=== PATIENT | female | born 1950 | race Caucasian/White ===

== ENCOUNTER → 2019-04-27 | Outpatient (CLI) | payer OTHER ==
[2019-04-27 16:15] LABS: BASOPHILS % (AUTO) 1 % (0-10); EOSINOPHILS % (AUTO) 1 % (0-10); HEMATOCRIT 38 % (35-52); HEMOGLOBIN 12.3 G/DL (11.5-16.0); LYMPHOCYTES # (AUTO) 1.5 X 10^3 (1.0-4.0); LYMPHOCYTES % (AUTO) 26 % (12-44); MEAN CORPUSCULAR HEMOGLOBIN 31 PG (25-34); MEAN CORPUSCULAR HGB CONC 32 G/DL (32-36); MEAN CORPUSCULAR VOLUME 96 FL (80-99); MEAN PLATELET VOLUME 9.6 FL (7.4-10.4); MONOCYTES # (AUTO) 0.4 X 10^3 (0.0-1.0); MONOCYTES % (AUTO) 8 % (0-12); NEUTROPHILS # (AUTO) 3.7 X 10^3 (1.8-7.8); NEUTROPHILS % (AUTO) 64 % (42-75); PLATELET COUNT 446 10^3/uL (130-400); RED CELL DISTRIBUTION WIDTH 13.3 % (10.0-14.5); WHITE BLOOD COUNT 5.8 10^3/uL (4.3-11.0)
[2019-04-27 16:16] LABS: BASOPHILS # (AUTO) 0.1 10^3/uL (0.0-0.1)
[2019-04-27 16:55] LABS: ALKALINE PHOSPHATASE 139 U/L (40-136); BILIRUBIN,TOTAL 0.2 MG/DL (0.1-1.0); BUN/CREATININE RATIO 11; CALCIUM 9.4 MG/DL (8.5-10.1); CARBON DIOXIDE 25 MMOL/L (21-32); CHLORIDE 99 MMOL/L (98-107); GFR ESTIMATED > 60; GLUCOSE 79 MG/DL (70-105); POTASSIUM 3.9 MMOL/L (3.6-5.0); SODIUM 139 MMOL/L (135-145)
[2019-04-27 16:56] LABS: ALANINE AMINOTRANSFERASE 74 U/L (0-55); ALBUMIN 3.9 GM/DL (3.2-4.5); TOTAL PROTEIN 7.1 GM/DL (6.4-8.2)
[2019-04-27 19:03] LABS: ERYTHROCYTE SEDIMENTATION RATE 75 MM/HR (0-30)
== END ==
LOC: LAB FS 15:24
DX: G96.19 Other disorders of meninges, not elsewhere classified (principal); G06.2 Extradural and subdural abscess, unspecified; M79.9 Soft tissue disorder, unspecified
CPT/HCPCS: 36415; 80053; 85025; 85652; 86141

== ENCOUNTER → 2019-05-04 | Outpatient (CLI) | payer OTHER ==
[2019-05-04 15:51] LABS: HEMATOCRIT 39 % (35-52); HEMOGLOBIN 12.2 G/DL (11.5-16.0); LYMPHOCYTES % (AUTO) 33 % (12-44); MEAN CORPUSCULAR HEMOGLOBIN 31 PG (25-34); MEAN CORPUSCULAR HGB CONC 32 G/DL (32-36); MEAN CORPUSCULAR VOLUME 96 FL (80-99); MEAN PLATELET VOLUME 10.2 FL (7.4-10.4); MONOCYTES % (AUTO) 9 % (0-12); NEUTROPHILS % (AUTO) 54 % (42-75); PLATELET COUNT 276 10^3/uL (130-400); RED CELL DISTRIBUTION WIDTH 13.1 % (10.0-14.5); WHITE BLOOD COUNT 5.2 10^3/uL (4.3-11.0)
[2019-05-04 15:52] LABS: BASOPHILS # (AUTO) 0.1 10^3/uL (0.0-0.1); BASOPHILS % (AUTO) 1 % (0-10); EOSINOPHILS # (AUTO) 0.1 10^3/uL (0.0-0.3); EOSINOPHILS % (AUTO) 3 % (0-10); LYMPHOCYTES # (AUTO) 1.7 X 10^3 (1.0-4.0); MONOCYTES # (AUTO) 0.5 X 10^3 (0.0-1.0); NEUTROPHILS # (AUTO) 2.8 X 10^3 (1.8-7.8)
[2019-05-04 16:37] LABS: ALANINE AMINOTRANSFERASE 29 U/L (0-55); ALBUMIN 3.6 GM/DL (3.2-4.5); ALKALINE PHOSPHATASE 121 U/L (40-136); BILIRUBIN,TOTAL 0.2 MG/DL (0.1-1.0); BUN/CREATININE RATIO 15; CALCIUM 9.3 MG/DL (8.5-10.1); CARBON DIOXIDE 27 MMOL/L (21-32); CHLORIDE 102 MMOL/L (98-107); CREATININE SERUM 0.71 MG/DL (0.60-1.30); GFR ESTIMATED > 60; GLUCOSE 93 MG/DL (70-105); POTASSIUM 4.2 MMOL/L (3.6-5.0); SODIUM 140 MMOL/L (135-145); TOTAL PROTEIN 6.8 GM/DL (6.4-8.2)
[2019-05-04 18:16] LABS: ERYTHROCYTE SEDIMENTATION RATE 30 MM/HR (0-30)
== END ==
LOC: LAB FS 15:26
PROVIDERS: ATTEND Internal Medicine Infectious Disease
DX: T81.49XA Infection following a procedure, other surgical site, initial encounter (principal); B95.1 Streptococcus, group B, as the cause of diseases classified elsewhere; M47.816 Spondylosis without myelopathy or radiculopathy, lumbar region; Z79.2 Long term (current) use of antibiotics
CPT/HCPCS: 36415; 80053; 85025; 85652; 86141

== ENCOUNTER → 2019-05-11 | Outpatient (CLI) | payer OTHER ==
[2019-05-11 15:29] LABS: HEMATOCRIT 40 % (35-52); HEMOGLOBIN 12.6 G/DL (11.5-16.0); MEAN CORPUSCULAR HEMOGLOBIN 30 PG (25-34); MEAN CORPUSCULAR HGB CONC 32 G/DL (32-36); MEAN CORPUSCULAR VOLUME 96 FL (80-99); RED CELL DISTRIBUTION WIDTH 13.2 % (10.0-14.5); WHITE BLOOD COUNT 5.4 10^3/uL (4.3-11.0)
[2019-05-11 15:30] LABS: BASOPHILS # (AUTO) 0.1 10^3/uL (0.0-0.1); BASOPHILS % (AUTO) 1 % (0-10); EOSINOPHILS # (AUTO) 0.1 10^3/uL (0.0-0.3); EOSINOPHILS % (AUTO) 2 % (0-10); LYMPHOCYTES # (AUTO) 1.9 X 10^3 (1.0-4.0); LYMPHOCYTES % (AUTO) 36 % (12-44); MEAN PLATELET VOLUME 10.6 FL (7.4-10.4); MONOCYTES # (AUTO) 0.5 X 10^3 (0.0-1.0); MONOCYTES % (AUTO) 9 % (0-12); NEUTROPHILS # (AUTO) 2.8 X 10^3 (1.8-7.8); NEUTROPHILS % (AUTO) 52 % (42-75); PLATELET COUNT 260 10^3/uL (130-400)
[2019-05-11 16:05] LABS: ALANINE AMINOTRANSFERASE 21 U/L (0-55); ALBUMIN 3.9 GM/DL (3.2-4.5); ALKALINE PHOSPHATASE 116 U/L (40-136); BILIRUBIN,TOTAL 0.2 MG/DL (0.1-1.0); BUN/CREATININE RATIO 11; CALCIUM 9.5 MG/DL (8.5-10.1); CARBON DIOXIDE 26 MMOL/L (21-32); CHLORIDE 105 MMOL/L (98-107); GFR ESTIMATED > 60; GLUCOSE 107 MG/DL (70-105); POTASSIUM 3.9 MMOL/L (3.6-5.0); SODIUM 144 MMOL/L (135-145); TOTAL PROTEIN 7.3 GM/DL (6.4-8.2)
[2019-05-11 16:47] LABS: ERYTHROCYTE SEDIMENTATION RATE 32 MM/HR (0-30)
== END ==
LOC: LAB FS 15:10
PROVIDERS: ATTEND Internal Medicine Infectious Disease
DX: M47.816 Spondylosis without myelopathy or radiculopathy, lumbar region (principal); B95.1 Streptococcus, group B, as the cause of diseases classified elsewhere; T81.49XA Infection following a procedure, other surgical site, initial encounter; Z79.2 Long term (current) use of antibiotics
CPT/HCPCS: 36415; 80053; 85025; 85652; 86141

== ENCOUNTER → 2019-06-01 | Outpatient (CLI) | payer OTHER ==
[2019-06-01 16:27] LABS: BASOPHILS % (AUTO) 1 % (0-10); EOSINOPHILS % (AUTO) 1 % (0-10); HEMATOCRIT 43 % (35-52); HEMOGLOBIN 13.8 G/DL (11.5-16.0); LYMPHOCYTES # (AUTO) 1.3 X 10^3 (1.0-4.0); LYMPHOCYTES % (AUTO) 22 % (12-44); MEAN CORPUSCULAR HEMOGLOBIN 30 PG (25-34); MEAN CORPUSCULAR HGB CONC 32 G/DL (32-36); MEAN CORPUSCULAR VOLUME 95 FL (80-99); MEAN PLATELET VOLUME 11.4 FL (7.4-10.4); MONOCYTES % (AUTO) 8 % (0-12); NEUTROPHILS # (AUTO) 4.1 X 10^3 (1.8-7.8); NEUTROPHILS % (AUTO) 68 % (42-75); PLATELET COUNT 206 10^3/uL (130-400); RED CELL DISTRIBUTION WIDTH 13.1 % (10.0-14.5); WHITE BLOOD COUNT 6.1 10^3/uL (4.3-11.0)
[2019-06-01 16:28] LABS: EOSINOPHILS # (AUTO) 0.1 10^3/uL (0.0-0.3); MONOCYTES # (AUTO) 0.5 X 10^3 (0.0-1.0)
[2019-06-01 17:22] LABS: BUN/CREATININE RATIO 17; CARBON DIOXIDE 25 MMOL/L (21-32); CHLORIDE 105 MMOL/L (98-107); CREATININE SERUM 0.65 MG/DL (0.60-1.30); GFR ESTIMATED > 60; POTASSIUM 3.9 MMOL/L (3.6-5.0); SODIUM 143 MMOL/L (135-145)
[2019-06-01 17:23] LABS: ALANINE AMINOTRANSFERASE 36 U/L (0-55); ALBUMIN 4.3 GM/DL (3.2-4.5); ALKALINE PHOSPHATASE 102 U/L (40-136); BILIRUBIN,TOTAL 0.2 MG/DL (0.1-1.0); CALCIUM 9.7 MG/DL (8.5-10.1); GLUCOSE 90 MG/DL (70-105); TOTAL PROTEIN 7.1 GM/DL (6.4-8.2)
[2019-06-01 17:25] LABS: ERYTHROCYTE SEDIMENTATION RATE 6 MM/HR (0-30)
== END ==
LOC: LAB FS 16:08
PROVIDERS: ATTEND Internal Medicine Infectious Disease
DX: T81.49XA Infection following a procedure, other surgical site, initial encounter (principal); B95.1 Streptococcus, group B, as the cause of diseases classified elsewhere; Z79.2 Long term (current) use of antibiotics
CPT/HCPCS: 36415; 80053; 85025; 85652; 86141

== ENCOUNTER → 2019-06-08 | Outpatient (CLI) | payer OTHER ==
[2019-06-08 18:19] LABS: ALANINE AMINOTRANSFERASE 21 U/L (0-55); ALKALINE PHOSPHATASE 105 U/L (40-136); BILIRUBIN,TOTAL 0.2 MG/DL (0.1-1.0); BUN/CREATININE RATIO 13; CALCIUM 9.1 MG/DL (8.5-10.1); CARBON DIOXIDE 24 MMOL/L (21-32); CHLORIDE 107 MMOL/L (98-107); CREATININE SERUM 0.62 MG/DL (0.60-1.30); GFR ESTIMATED > 60; GLUCOSE 78 MG/DL (70-105); POTASSIUM 3.9 MMOL/L (3.6-5.0); SODIUM 143 MMOL/L (135-145)
[2019-06-08 18:20] LABS: ALBUMIN 4.2 GM/DL (3.2-4.5)
[2019-06-08 19:46] LABS: HEMATOCRIT 42 % (35-52); HEMOGLOBIN 13.5 G/DL (11.5-16.0); MEAN CORPUSCULAR HEMOGLOBIN 30 PG (25-34); MEAN CORPUSCULAR VOLUME 94 FL (80-99); WHITE BLOOD COUNT 6.2 10^3/uL (4.3-11.0)
[2019-06-08 19:47] LABS: BASOPHILS # (AUTO) 0.1 10^3/uL (0.0-0.1); BASOPHILS % (AUTO) 1 % (0-10); EOSINOPHILS # (AUTO) 0.1 10^3/uL (0.0-0.3); EOSINOPHILS % (AUTO) 2 % (0-10); LYMPHOCYTES # (AUTO) 1.4 X 10^3 (1.0-4.0); LYMPHOCYTES % (AUTO) 23 % (12-44); MEAN CORPUSCULAR HGB CONC 32 G/DL (32-36); MEAN PLATELET VOLUME 11.4 FL (7.4-10.4); MONOCYTES # (AUTO) 0.5 X 10^3 (0.0-1.0); MONOCYTES % (AUTO) 7 % (0-12); NEUTROPHILS # (AUTO) 4.1 X 10^3 (1.8-7.8); NEUTROPHILS % (AUTO) 67 % (42-75); PLATELET COUNT 224 10^3/uL (130-400); RED CELL DISTRIBUTION WIDTH 12.9 % (10.0-14.5)
[2019-06-08 19:48] LABS: ERYTHROCYTE SEDIMENTATION RATE 4 MM/HR (0-30)
== END ==
LOC: LAB FS 16:40
PROVIDERS: ATTEND Internal Medicine Infectious Disease
DX: T81.49XA Infection following a procedure, other surgical site, initial encounter (principal); Z79.2 Long term (current) use of antibiotics
CPT/HCPCS: 36415; 80053; 85025; 85652; 86141

== ENCOUNTER 2019-08-05 07:39 | Emergency (ER) | payer MEDICARE, OTHER ==
[~2019-08-05] VITALS: Ht 157.9 cm; Wt 68.1 kg
--- NOTE | 2019-08-05 07:39 | NUR ---
Arrival to ED via [facility], see nursing triage.
[2019-08-05] MEDS ORDERED: HYDROmorphone 2 MG/ML VIAL (DILAUDID) ONE (07:53)
[2019-08-05] MEDS ORDERED: NS IV 1000 ML 1,000 ML IV SCH (08:00)
[2019-08-05] MEDS ORDERED: ONDANSETRON 4 MG/2 ML (SDV) Z0FRAN IVP ONE ×2 (08:00→09:30)
[2019-08-05] MEDS ORDERED: HYDROmorphone 2 MG/ML VIAL (DILAUDID) IVP ONE (08:00)
--- NOTE | 2019-08-05 08:03 | NUR ---
Pain medication given for c/o severe pain.
--- NOTE | 2019-08-05 08:08 | ED General ---
General Chief Complaint: Abdominal/GI Problems Stated Complaint: NEAR SYNCOPE; ABD PAIN Nursing Triage Note: Pt presents via EMS from pt's employment with severe abd pain and near syncope event. Pt had gallbladder removal at [facility] on Saturday. Pt reports has had BM since surgery and is using Hydrocodone for pain. Last pain pill 0500 and EMS gave Fentanyl 25 mcg IV. Nursing Sepsis Screen: No Definite Risk History of Present Illness Date Seen by Provider: August 05, 2019 Time Seen by Provider: 08:04 Initial Comments Patient presenting to emergency department via EMS for evaluation of sudden onset abdominal pain earlier this morning. She says it is epigastric and radiates into her lower abdomen but not towards her back or chest. She says she has no nausea vomiting diaphoresis shortness of breath diarrhea constipation dysuria hematuria. She had a [facility]olecystectomy last Saturday [facility] She says it was uncomplicated and she has had no issues since surgery until now. She says she has been having normal bowel movements and passing gas. She received 25 g of fentanyl and says she is still in severe pain. She appears uncomfortable but nontoxic. Allergies and Home Medications Allergies Coded Allergies: Sulfa (Sulfonamide Antibiotics) (Unverified Adverse Reaction, Unknown, 08/05/19) Patient Home Medication List Home Medication List Reviewed: Yes Review of Systems Review of Systems Constitutional: no symptoms reported EENTM: no symptoms reported Respiratory: no symptoms reported Cardiovascular: no symptoms reported Gastrointestinal: abdominal pain Genitourinary: no symptoms reported Musculoskeletal: no symptoms reported Skin: no symptoms reported All Other Systems Reviewed Negative Unless Noted: Yes Past Rcffnuw-[id number]-[id number] Hx Patient Social History Recent Foreign Travel: No Contact w/Someone Who Travel: No Recent Infectious Disease Expo: No Past Medical History [facility] [facility] [employer] History: Hysterectomy Physical Exam Vital Signs Vital Signs - First Documented 08/05/19 07:39 Temp 35.6 Pulse 65 Resp 20 B/P (MAP) 122/67 (85) O2 Delivery Room Air Capillary Refill : Less Than 3 Seconds Height, Weight, BMI Height: '" Weight: lbs. oz. kg; 27.00 BMI Method: General Appearance: WD/WN, Mild Distress HEENT: PERRL/EOMI Neck: Supple Respiratory: No Respiratory Distress Cardiovascular: Regular Rate, Rhythm Gastrointestinal: Soft; No Guarding, No Rebound; Tenderness (epigastrum) Back: Normal Inspection Neurologic/Psychiatric: Alert, Oriented x3 Skin: Warm/Dry Progress/Results/Core Measures Suspected Sepsis Recent Fever Within 48 Hours: No Infection Criteria Present: Suspected New Infection New/Unexplained Altered Menta: No Sepsis Screen: No Definite Risk SIRS Temperature: Pulse: 65 Respiratory Rate: 20 Laboratory Tests 08/05/19 07:45: White Blood Count 11.1H Blood Pressure 122 /67 Mean: 85 Laboratory Tests 08/05/19 07:45: Creatinine 0.77, INR Comment 0.9, Platelet Count 286, Total Bilirubin 0.3 Results/Orders Lab Results Laboratory Tests Test 08/05/19 07:45 08/05/19 08:43 Range/Units White Blood Count 11.1 H 4.3-11.0 10^3/uL Red Blood Count 4.64 4.35-5.85 10^6/uL Hemoglobin 13.9 11.5-16.0 G/DL Hematocrit 43 35-52 % Mean Corpuscular Volume 94 80-99 FL Mean Corpuscular Hemoglobin 30 25-34 PG Mean Corpuscular Hemoglobin Concent 32 32-36 G/DL Red Cell Distribution Width 13.3 10.0-14.5 % Platelet Count 286 130-400 10^3/uL Mean Platelet Volume 10.7 H 7.4-10.4 FL Neutrophils (%) (Auto) 50 42-75 % Lymphocytes (%) (Auto) 40 12-44 % Monocytes (%) (Auto) 8 0-12 % Eosinophils (%) (Auto) 1 0-10 % Basophils (%) (Auto) 1 0-10 % Neutrophils # (Auto) 5.5 1.8-7.8 X 10^3 Lymphocytes # (Auto) 4.4 H 1.0-4.0 X 10^3 Monocytes # (Auto) 0.9 0.0-1.0 X 10^3 Eosinophils # (Auto) 0.1 0.0-0.3 10^3/uL Basophils # (Auto) 0.1 0.0-0.1 10^3/uL Prothrombin Time 12.5 12.2-14.7 SEC INR Comment 0.9 0.8-1.4 Activated Partial Thromboplast Time 25 24-35 SEC Sodium Level 144 135-145 MMOL/L Potassium Level 3.6 3.6-5.0 MMOL/L Chloride Level 107 98-107 MMOL/L Carbon Dioxide Level 21 21-32 MMOL/L Anion Gap 16 H 5-14 MMOL/L Blood Urea Nitrogen 16 7-18 MG/DL Creatinine 0.77 0.60-1.30 MG/DL Estimat Glomerular Filtration Rate > 60 BUN/Creatinine Ratio 21 Glucose Level 159 H 70-105 MG/DL Calcium Level 9.2 8.5-10.1 MG/DL Corrected Calcium 9.2 8.5-10.1 MG/DL Total Bilirubin 0.3 0.1-1.0 MG/DL Aspartate Amino Transf (AST/SGOT) 25 5-34 U/L Alanine Aminotransferase (ALT/SGPT) 80 H 0-55 U/L Alkaline Phosphatase 118 40-136 U/L Troponin I < 0.30 <0.30 NG/ML Total Protein 6.6 6.4-8.2 GM/DL Albumin 4.0 3.2-4.5 GM/DL Lipase 18 8-78 U/L Urine Color YELLOW Urine Clarity CLEAR Urine pH 6.5 5-9 Urine Specific [place] 1.015 L 1.016-1.022 Urine Protein NEGATIVE NEGATIVE Urine Glucose (UA) NEGATIVE NEGATIVE Urine Ketones NEGATIVE NEGATIVE Urine Nitrite NEGATIVE NEGATIVE Urine Bilirubin NEGATIVE NEGATIVE Urine Urobilinogen 0.2 < = 1.0 MG/DL Urine Leukocyte Esterase 1+ H NEGATIVE Urine RBC (Auto) NEGATIVE NEGATIVE Urine RBC NONE /HPF Urine WBC 10-25 H /HPF Urine Squamous Epithelial Cells 0-2 /HPF Urine Crystals NONE /LPF Urine Bacteria TRACE /HPF Urine Casts PRESENT /LPF Urine Hyaline Casts 2-5 H /LPF Urine Mucus SMALL H /LPF Urine Culture Indicated YES My Orders Orders - LORENZA SCHMITT DO Cbc With Automated Diff (08/05/19 07:58) Comprehensive Metabolic Panel (08/05/19 07:58) Lipase (08/05/19 07:58) Troponin I Fs (08/05/19 07:58) Partial Thromboplastin Time (08/05/19 07:58) Protime With Inr (08/05/19 07:58) Ct Abdomen/Pelvis W (08/05/19 07:58) Ns Iv 1000 Ml (Sodium Chloride 0.9%) (08/05/19 08:00) Ondansetron Injection (Zofran Injectio (08/05/19 08:00) Hydromorphone Injection (Dilaudid Inject (08/05/19 08:00) Hydromorphone Injection (Dilaudid Inject (08/05/19 07:53) Iohexol Injection (Omnipaque 350 Mg/Ml 1 (08/05/19 08:15) Received Contrast (Hold Metformin- Contr (08/05/19 08:15) Sodium Chloride Flush (Catheter Flush Sy (08/05/19 08:15) Ns (Ivpb) (Sodium Chloride 0.9% Ivpb Bag (08/05/19 08:15) Pantoprazole Injection (Protonix Injecti (08/05/19 08:30) Ua Culture If Indicated (08/05/19 08:37) Urine Culture (08/05/19 08:43) Fentanyl Injection (Sublimaze Injection (08/05/19 09:30) Ondansetron Injection (Zofran Injectio (08/05/19 09:30) Antacid Suspension (Mylanta Suspension (08/05/19 09:30) Lidocaine 2% Viscous 15 Ml (Xylocaine Vi (08/05/19 09:30) Dicyclomine Injection (Bentyl Injection) (08/05/19 09:45) Ketorolac Injection (Toradol Injection) (08/05/19 09:45) Methylnaltrexone Injection (Relistor Inj (08/05/19 09:45) Morphine Injection (Morphine Injection (08/05/19 10:27) Haloperidol Injection (Haldol Injectio (08/05/19 10:45) Diphenhydramine Injection (Benadryl Inje (08/05/19 10:45) Medications Given in ED Current Medications Medications Dose Ordered Sig/Gail Route Start Time Stop Time Status Last Admin Dose Admin Al Hydrox/Mg Hydrox/Simethicone 30 ml ONCE ONCE PO 08/05/19 09:30 08/05/19 09:31 DC 08/05/19 09:45 30 ML Dicyclomine HCl 20 mg ONCE ONCE IM 08/05/19 09:45 08/05/19 09:46 DC 08/05/19 09:45 20 MG Fentanyl Citrate 50 mcg ONCE ONCE IVP 08/05/19 09:30 08/05/19 09:31 DC 08/05/19 09:38 50 MCG Hydromorphone HCl 1 mg ONCE ONCE IVP 08/05/19 08:00 08/05/19 08:01 DC 08/05/19 08:03 1 MG Iohexol 100 ml ONCE ONCE IV 08/05/19 08:15 08/05/19 08:16 DC 08/05/19 08:30 100 ML Ketorolac Tromethamine 15 mg ONCE ONCE IVP 08/05/19 09:45 08/05/19 09:46 DC 08/05/19 10:01 15 MG Lidocaine HCl 5 ml ONCE ONCE PO 08/05/19 09:30 08/05/19 09:31 DC 08/05/19 09:45 5 ML Methylnaltrexone [place] 12 mg ONCE ONCE SQ 08/05/19 09:45 08/05/19 09:46 DC 08/05/19 10:02 12 MG Ondansetron HCl 4 mg ONCE ONCE IVP 08/05/19 08:00 08/05/19 08:01 DC 08/05/19 08:06 4 MG Ondansetron HCl 4 mg ONCE ONCE IVP 08/05/19 09:30 08/05/19 09:31 DC 08/05/19 09:37 4 MG Pantoprazole 40 mg ONCE ONCE IV 08/05/19 08:30 08/05/19 08:31 DC 08/05/19 08:34 40 MG Sodium Chloride 10 ml NEEDED PRN IV 08/05/19 08:15 08/05/19 08:30 10 ML Sodium Chloride 100 ml ONCE ONCE IV 08/05/19 08:15 08/05/19 08:16 DC 08/05/19 08:30 80 ML Vital Signs/I&O 08/05/19 08/05/19 07:39 08:03 Temp 35.6 35.6 Pulse 65 Resp 20 B/P (MAP) 122/67 (85) O2 Delivery Room Air Capillary Refill : Less Than 3 Seconds Blood Pressure Mean: 85 Progress Note : Progress Note Patient with severe onset abdominal pain this morning in the setting of the surgery 5 days ago. I will check labs, imaging treat symptoms and reassess. Workup was unremarkable for acute process including no acute surgical pathology. I spoke to Dr. Bustos who is her surgeon from [facility] and he gave me several recommendations including Toradol and if I was able to send her home to wash her bowels out with magnesium citrate and prescribe her Tylenol and gabapentin for pain. He said if she needed to be admitted for pain control she does not need to be transferred to [facility] from his perspective. Patient received fentanyl from EMS and then I gave her Dilaudid which did not help her pain slightly gave her additional fentanyl and also give HER-2 doses of Zofran Protonix and a GI cocktail. She continue to arrive and pain and said she did not feel much better so I gave her morphine and Toradol Bentyl and relistor. She continued to writh in pain and said she was too uncomfortable to go home. I spoke to Dr. Mercado at [facility] and she requested patient to be transferred as she is fairly close to her postoperative surgery and patient would need a surgical consult and would be best for her to get her consult from her surgeon. I spoke to Dr. Rogers at [facility] and she agreed to accept patient for transfer. She asked me to give her something to calm her down so I gave her Haldol and Benadryl IV. Departure Impression Primary Impression: Intractable abdominal pain Additional Impressions: Nausea alone Leukocytosis (leucocytosis) Disposition: 02 XFER SHT-TRM HOSP Condition: Unchanged Transfer Transfer Reason: Patient preference Time Spoke to Accepting Phy: 10:20 Transfer Facility: [facility] Method of Transfer: EMS Departure-Patient Inst. Referrals: [facility] (PCP) Primary Care Physician TRUDI MAXWELL (Family) Primary Care Physician LORENZA SCHMITT DO August 05, 2019 08:08
--- OUTSIDE RECORDS SUMMARY | 2019-08-05 08:11 | XMS REPORT | Continuity of Care Document ---
Author Organization Unknown Address Unknown Phone Unavailable Allergies There is no data. Medications There is no data. 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, NOT ELSEWHE 05/03/2019 DIANA MARIEE MD Ot M79.9 SOFT TISSUE DISORDER, UNSPECIFIED 05/06/2019 DIANA MARIEE MD Ot 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, UNSPECI 05/06/2019 DIANA MARIEE MD Ot G96.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, 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 05/06/2019 DIANA MARIEE MD Ot M79.9 SOFT TISSUE DISORDER, UNSPECIFIED 05/06/2019 DIANA MARIEE MD Ot 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, UNSPECI 05/06/2019 DIANA MARIEE MD Ot G96.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, 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 05/06/2019 DIANA MARIEE MD Ot M79.9 SOFT TISSUE DISORDER, UNSPECIFIED 05/06/2019 DIANA MARIEE MD Ot 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, UNSPECI 05/06/2019 DIANA MARIEE MD Ot G96.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, NOT ELSEWHE 05/06/2019 DIANA MARIEE MD Ot M79.9 SOFT TISSUE DISORDER, UNSPECIFIED 05/13/2019 KODI GREENBERG, DIANA Resendez Ot B95.1 STREPTOCOCCUS, GROUP B, CAUSING DISEASES 05/13/2019 KODI GREENBERG, DIANA Resendez Ot M47.816 SPONDYLOSIS W/O MYELOPATHY OR RADICULOPA 05/13/2019 KODI GREENBERG, DIANA Resendez Ot T81.49X A INFECTION FOLLOWING A PROCEDURE, OTHER S 05/13/2019 DIANA MARIEE MD Ot Z79.2 CORRECTION (CURRENT) USE OF ANTIBIOTICS 05/13/2019 DIANA MARIEE MD Ot B95.1 STREPTOCOCCUS, GROUP B, CAUSING DISEASES 05/13/2019 KODI GREENBERG, DIANA Resendez Ot M47.816 SPONDYLOSIS W/O MYELOPATHY OR RADICULOPA 05/13/2019 KODI GREENBERG, DIANA Resendez Ot T81.49X A INFECTION FOLLOWING A PROCEDURE, OTHER S 05/13/2019 DIANA MARIEE MD Ot 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 05/27/2019 DIANA MARIEE MD Ot B95.1 STREPTOCOCCUS, GROUP B, CAUSING DISEASES 05/27/2019 DIANA MARIEE MD Ot M47.816 SPONDYLOSIS W/O MYELOPATHY OR RADICULOPA 05/27/2019 DIANA MARIEE MD Ot T81.49X A INFECTION FOLLOWING A PROCEDURE, OTHER S 05/27/2019 DIANA MARIEE MD Ot 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 Results Test Result Range Complete blood count (CBC) with automate d white blood cell (WBC) differential - 04/27/19 12:30 Blood leukocytes automated count (number/volume) 5.8 10*3/uL 4.3-11.0 Blood erythrocytes automated count (number/volume) 3.98 10*6/uL 4.35-5.85 Venous blood hemoglobin measurement (mass/volume) 12.3 g/dL 11.5-16.0 Blood hematocrit (volume fraction) 38 % 35-52 Automated erythrocyte mean corpuscular volume 96 [ foz_us] 80-99 Automated erythrocyte mean corpuscular h emoglobin (mass per erythrocyte) 31 pg 25-34 Automated erythrocyte mean corpuscular h emoglobin concentration measurement (mass/volume) 32 g/dL 32-36 Automated erythrocyte distribution width ratio 13. 3 % 10.0- 14.5 Automated blood platelet count (count/volume) 446 10*3/uL 130-400 Automated blood platelet mean volume measurement 9.6 [foz_us] 7.4-10.4 Automated blood neutrophils/100 leukocytes 64 % 42-75 Automated blood lymphocytes/100 leukocytes 26 % 12-44 Blood monocytes/100 leukocytes 8 % 0-12 Automated blood eosinophils/100 leukocytes 1 % 0-10 Automated blood basophils/100 leukocytes 1 % 0-10 Blood neutrophils automated count (number/volume) 3.7 10*3 1.8-7.8 Blood lymphocytes automated count (number/volume) 1.5 10*3 1.0-4.0 Blood monocytes automated count (number/volume) 0. 4 10*3 0.0-1.0 Automated eosinophil count 0.0 10*3/uL 0 .0-0.3 Automated blood basophil count (count/volume) 0.1 10*3/uL 0.0-0.1 Comprehensive metabolic panel - 04/27/19 12:30 Serum or plasma sodium measurement (moles/volume) 139 mmol/L 135-145 Serum or plasma potassium measurement (moles/volume) 3.9 mmol/L 3.6-5.0 Serum or plasma chloride measurement (moles/volume) 99 mmol/L 98-107 Carbon dioxide 25 mmol/L 21-32 Serum or plasma anion gap determination (moles/volume) 15 mmol/L 5-14 Serum or plasma urea nitrogen measurement (mass/volume ) 8 mg/dL 7-18 Serum or plasma creatinine measurement (mass/volume) 0.70 mg/dL 0.60-1.30 Serum or plasma urea nitrogen/creatinine mass ratio 11 NRG Serum or plasma creatinine measurement w ith calculation of estimated glomerular filtration rate > NRG Serum or plasma glucose measurement (mass/volume) 79 mg/dL 70-105 Serum or plasma calcium measurement (mass/volume) 9.4 mg/dL 8.5-10.1 Serum or plasma total bilirubin measurement (mass/volu me) 0.2 mg/dL 0.1-1.0 Serum or plasma alkaline phosphatase arthur surement (enzymatic activity/volume) 139 U/L 40-136 Serum or plasma aspartate aminotransfera se measurement (enzymatic activity/volume) 25 U/L 5-34 Serum or plasma alanine aminotransferase measurement (enzymatic activity/volume) 74 U/L 0-55 Serum or plasma protein measurement (mass/volume) 7.1 g/dL 6.4-8.2 Serum or plasma albumin measurement (mass/volume) 3.9 g/dL 3.2-4.5 CALCIUM CORRECTED 9.5 mg/dL 8.5-10.1 Erythrocyte sedimentation rate by chloé gren method - 04/27/19 12:30 Erythrocyte sedimentation rate by westergren method 75 mm 0- 30 CRP FS - 04/27/19 17:19 CRP FS 1.62 mg/dL <0.50 Complete blood count (CBC) with automate d white blood cell (WBC) differential - 05/04/19 12:40 Blood leukocytes automated count (number/volume) 5.2 10*3/uL 4.3-11.0 Blood erythrocytes automated count (number/volume) 4.00 10*6/uL 4.35-5.85 Venous blood hemoglobin measurement (mass/volume) 12.2 g/dL 11.5-16.0 Blood hematocrit (volume fraction) 39 % 35-52 Automated erythrocyte mean corpuscular volume 96 [ foz_us] 80-99 Automated erythrocyte mean corpuscular h emoglobin (mass per erythrocyte) 31 pg 25-34 Automated erythrocyte mean corpuscular h emoglobin concentration measurement (mass/volume) 32 g/dL 32-36 Automated erythrocyte distribution width ratio 13. 1 % 10.0- 14.5 Automated blood platelet count (count/volume) 276 10*3/uL 130-400 Automated blood platelet mean volume measurement 10.2 [foz_us] 7.4-10.4 Automated blood neutrophils/100 leukocytes 54 % 42-75 Automated blood lymphocytes/100 leukocytes 33 % 12-44 Blood monocytes/100 leukocytes 9 % 0-12 Automated blood eosinophils/100 leukocytes 3 % 0-10 Automated blood basophils/100 leukocytes 1 % 0-10 Blood neutrophils automated count (number/volume) 2.8 10*3 1.8-7.8 Blood lymphocytes automated count (number/volume) 1.7 10*3 1.0-4.0 Blood monocytes automated count (number/volume) 0. 5 10*3 0.0-1.0 Automated eosinophil count 0.1 10*3/uL 0 .0-0.3 Automated blood basophil count (count/volume) 0.1 10*3/uL 0.0-0.1 Comprehensive metabolic panel - 05/04/19 12:40 Serum or plasma sodium measurement (moles/volume) 140 mmol/L 135-145 Serum or plasma potassium measurement (moles/volume) 4.2 mmol/L 3.6-5.0 Serum or plasma chloride measurement (moles/volume) 102 mmol/L 98-107 Carbon dioxide 27 mmol/L 21-32 Serum or plasma anion gap determination (moles/volume) 11 mmol/L 5-14 Serum or plasma urea nitrogen measurement (mass/volume ) 11 mg/dL 7-18 Serum or plasma creatinine measurement (mass/volume) 0.71 mg/dL 0.60-1.30 Serum or plasma urea nitrogen/creatinine mass ratio 15 NRG Serum or plasma creatinine measurement w ith calculation of estimated glomerular filtration rate > NRG Serum or plasma glucose measurement (mass/volume) 93 mg/dL 70-105 Serum or plasma calcium measurement (mass/volume) 9.3 mg/dL 8.5-10.1 Serum or plasma total bilirubin measurement (mass/volu me) 0.2 mg/dL 0.1-1.0 Serum or plasma alkaline phosphatase arthur surement (enzymatic activity/volume) 121 U/L 40-136 Serum or plasma aspartate aminotransfera se measurement (enzymatic activity/volume) 16 U/L 5-34 Serum or plasma alanine aminotransferase measurement (enzymatic activity/volume) 29 U/L 0-55 Serum or plasma protein measurement (mass/volume) 6.8 g/dL 6.4-8.2 Serum or plasma albumin measurement (mass/volume) 3.6 g/dL 3.2-4.5 CALCIUM CORRECTED 9.6 mg/dL 8.5-10.1 CRP FS - 05/04/19 12:40 CRP FS 0.51 mg/dL <0.50 Erythrocyte sedimentation rate by chloé gren method - 05/04/19 12:40 Erythrocyte sedimentation rate by westergren method 30 mm 0- 30 Complete blood count (CBC) with automate d white blood cell (WBC) differential - 05/11/19 13:00 Blood leukocytes automated count (number/volume) 5.4 10*3/uL 4.3-11.0 Blood erythrocytes automated count (number/volume) 4.17 10*6/uL 4.35-5.85 Venous blood hemoglobin measurement (mass/volume) 12.6 g/dL 11.5-16.0 Blood hematocrit (volume fraction) 40 % 35-52 Automated erythrocyte mean corpuscular volume 96 [ foz_us] 80-99 Automated erythrocyte mean corpuscular h emoglobin (mass per erythrocyte) 30 pg 25-34 Automated erythrocyte mean corpuscular h emoglobin concentration measurement (mass/volume) 32 g/dL 32-36 Automated erythrocyte distribution width ratio 13. 2 % 10.0- 14.5 Automated blood platelet count (count/volume) 260 10*3/uL 130-400 Automated blood platelet mean volume measurement 10.6 [foz_us] 7.4-10.4 Automated blood neutrophils/100 leukocytes 52 % 42-75 Automated blood lymphocytes/100 leukocytes 36 % 12-44 Blood monocytes/100 leukocytes 9 % 0-12 Automated blood eosinophils/100 leukocytes 2 % 0-10 Automated blood basophils/100 leukocytes 1 % 0-10 Blood neutrophils automated count (number/volume) 2.8 10*3 1.8-7.8 Blood lymphocytes automated count (number/volume) 1.9 10*3 1.0-4.0 Blood monocytes automated count (number/volume) 0. 5 10*3 0.0-1.0 Automated eosinophil count 0.1 10*3/uL 0 .0-0.3 Automated blood basophil count (count/volume) 0.1 10*3/uL 0.0-0.1 Comprehensive metabolic panel - 05/11/19 13:00 Serum or plasma sodium measurement (moles/volume) 144 mmol/L 135-145 Serum or plasma potassium measurement (moles/volume) 3.9 mmol/L 3.6-5.0 Serum or plasma chloride measurement (moles/volume) 105 mmol/L 98-107 Carbon dioxide 26 mmol/L 21-32 Serum or plasma anion gap determination (moles/volume) 13 mmol/L 5-14 Serum or plasma urea nitrogen measurement (mass/volume ) 8 mg/dL 7-18 Serum or plasma creatinine measurement (mass/volume) 0.70 mg/dL 0.60-1.30 Serum or plasma urea nitrogen/creatinine mass ratio 11 NRG Serum or plasma creatinine measurement w ith calculation of estimated glomerular filtration rate > NRG Serum or plasma glucose measurement (mass/volume) 107 mg/dL 70-105 Serum or plasma calcium measurement (mass/volume) 9.5 mg/dL 8.5-10.1 Serum or plasma total bilirubin measurement (mass/volu me) 0.2 mg/dL 0.1-1.0 Serum or plasma alkaline phosphatase arthur surement (enzymatic activity/volume) 116 U/L 40-136 Serum or plasma aspartate aminotransfera se measurement (enzymatic activity/volume) 17 U/L 5-34 Serum or plasma alanine aminotransferase measurement (enzymatic activity/volume) 21 U/L 0-55 Serum or plasma protein measurement (mass/volume) 7.3 g/dL 6.4-8.2 Serum or plasma albumin measurement (mass/volume) 3.9 g/dL 3.2-4.5 CALCIUM CORRECTED 9.6 mg/dL 8.5-10.1 CRP FS - 05/11/19 13:00 CRP FS 2.02 mg/dL <0.50 Erythrocyte sedimentation rate by chloé gren method - 05/11/19 13:00 Erythrocyte sedimentation rate by westergren method 32 mm 0- 30 Complete blood count (CBC) with automate d white blood cell (WBC) differential - 06/01/19 12:45 Blood leukocytes automated count (number/volume) 6.1 10*3/uL 4.3-11.0 Blood erythrocytes automated count (number/volume) 4.53 10*6/uL 4.35-5.85 Venous blood hemoglobin measurement (mass/volume) 13.8 g/dL 11.5-16.0 Blood hematocrit (volume fraction) 43 % 35-52 Automated erythrocyte mean corpuscular volume 95 [ foz_us] 80-99 Automated erythrocyte mean corpuscular h emoglobin (mass per erythrocyte) 30 pg 25-34 Automated erythrocyte mean corpuscular h emoglobin concentration measurement (mass/volume) 32 g/dL 32-36 Automated erythrocyte distribution width ratio 13. 1 % 10.0- 14.5 Automated blood platelet count (count/volume) 206 10*3/uL 130-400 Automated blood platelet mean volume measurement 11.4 [foz_us] 7.4-10.4 Automated blood neutrophils/100 leukocytes 68 % 42-75 Automated blood lymphocytes/100 leukocytes 22 % 12-44 Blood monocytes/100 leukocytes 8 % 0-12 Automated blood eosinophils/100 leukocytes 1 % 0-10 Automated blood basophils/100 leukocytes 1 % 0-10 Blood neutrophils automated count (number/volume) 4.1 10*3 1.8-7.8 Blood lymphocytes automated count (number/volume) 1.3 10*3 1.0-4.0 Blood monocytes automated count (number/volume) 0. 5 10*3 0.0-1.0 Automated eosinophil count 0.1 10*3/uL 0 .0-0.3 Automated blood basophil count (count/volume) 0.0 10*3/uL 0.0-0.1 Comprehensive metabolic panel - 06/01/19 12:45 Serum or plasma sodium measurement (moles/volume) 143 mmol/L 135-145 Serum or plasma potassium measurement (moles/volume) 3.9 mmol/L 3.6-5.0 Serum or plasma chloride measurement (moles/volume) 105 mmol/L 98-107 Carbon dioxide 25 mmol/L 21-32 Serum or plasma anion gap determination (moles/volume) 13 mmol/L 5-14 Serum or plasma urea nitrogen measurement (mass/volume ) 11 mg/dL 7-18 Serum or plasma creatinine measurement (mass/volume) 0.65 mg/dL 0.60-1.30 Serum or plasma urea nitrogen/creatinine mass ratio 17 NRG Serum or plasma creatinine measurement w ith calculation of estimated glomerular filtration rate > NRG Serum or plasma glucose measurement (mass/volume) 90 mg/dL 70-105 Serum or plasma calcium measurement (mass/volume) 9.7 mg/dL 8.5-10.1 Serum or plasma total bilirubin measurement (mass/volu me) 0.2 mg/dL 0.1-1.0 Serum or plasma alkaline phosphatase arthur surement (enzymatic activity/volume) 102 U/L 40-136 Serum or plasma aspartate aminotransfera se measurement (enzymatic activity/volume) 17 U/L 5-34 Serum or plasma alanine aminotransferase measurement (enzymatic activity/volume) 36 U/L 0-55 Serum or plasma protein measurement (mass/volume) 7.1 g/dL 6.4-8.2 Serum or plasma albumin measurement (mass/volume) 4.3 g/dL 3.2-4.5 CALCIUM CORRECTED 9.5 mg/dL 8.5-10.1 CRP FS - 06/01/19 12:45 CRP FS 0.12 mg/dL <0.50 Erythrocyte sedimentation rate by chloé gren method - 06/01/19 12:45 Erythrocyte sedimentation rate by westergren method 6 mm 0- 30 Comprehensive metabolic panel - 06/08/19 13:15 Serum or plasma sodium measurement (moles/volume) 143 mmol/L 135-145 Serum or plasma potassium measurement (moles/volume) 3.9 mmol/L 3.6-5.0 Serum or plasma chloride measurement (moles/volume) 107 mmol/L 98-107 Carbon dioxide 24 mmol/L 21-32 Serum or plasma anion gap determination (moles/volume) 12 mmol/L 5-14 Serum or plasma urea nitrogen measurement (mass/volume ) 8 mg/dL 7-18 Serum or plasma creatinine measurement (mass/volume) 0.62 mg/dL 0.60-1.30 Serum or plasma urea nitrogen/creatinine mass ratio 13 NRG Serum or plasma creatinine measurement w ith calculation of estimated glomerular filtration rate > NRG Serum or plasma glucose measurement (mass/volume) 78 mg/dL 70-105 Serum or plasma calcium measurement (mass/volume) 9.1 mg/dL 8.5-10.1 Serum or plasma total bilirubin measurement (mass/volu me) 0.2 mg/dL 0.1-1.0 Serum or plasma alkaline phosphatase arthur surement (enzymatic activity/volume) 105 U/L 40-136 Serum or plasma aspartate aminotransfera se measurement (enzymatic activity/volume) 18 U/L 5-34 Serum or plasma alanine aminotransferase measurement (enzymatic activity/volume) 21 U/L 0-55 Serum or plasma protein measurement (mass/volume) 7.0 g/dL 6.4-8.2 Serum or plasma albumin measurement (mass/volume) 4.2 g/dL 3.2-4.5 CALCIUM CORRECTED 8.9 mg/dL 8.5-10.1 CRP FS - 06/08/19 13:15 CRP FS 0.08 mg/dL <0.50 Complete blood count (CBC) with automate d white blood cell (WBC) differential - 06/08/19 13:15 Blood leukocytes automated count (number/volume) 6.2 10*3/uL 4.3-11.0 Blood erythrocytes automated count (number/volume) 4.50 10*6/uL 4.35-5.85 Venous blood hemoglobin measurement (mass/volume) 13.5 g/dL 11.5-16.0 Blood hematocrit (volume fraction) 42 % 35-52 Automated erythrocyte mean corpuscular volume 94 [ foz_us] 80-99 Automated erythrocyte mean corpuscular h emoglobin (mass per erythrocyte) 30 pg 25-34 Automated erythrocyte mean corpuscular h emoglobin concentration measurement (mass/volume) 32 g/dL 32-36 Automated erythrocyte distribution width ratio 12. 9 % 10.0- 14.5 Automated blood platelet count (count/volume) 224 10*3/uL 130-400 Automated blood platelet mean volume measurement 11.4 [foz_us] 7.4-10.4 Automated blood neutrophils/100 leukocytes 67 % 42-75 Automated blood lymphocytes/100 leukocytes 23 % 12-44 Blood monocytes/100 leukocytes 7 % 0-12 Automated blood eosinophils/100 leukocytes 2 % 0-10 Automated blood basophils/100 leukocytes 1 % 0-10 Blood neutrophils automated count (number/volume) 4.1 10*3 1.8-7.8 Blood lymphocytes automated count (number/volume) 1.4 10*3 1.0-4.0 Blood monocytes automated count (number/volume) 0. 5 10*3 0.0-1.0 Automated eosinophil count 0.1 10*3/uL 0 .0-0.3 Automated blood basophil count (count/volume) 0.1 10*3/uL 0.0-0.1 Erythrocyte sedimentation rate by chloé gren method - 06/08/19 13:15 Erythrocyte sedimentation rate by westergren method 4 mm 0- 30 Encounters ACCT No. Visit Date/Time Discharge Status Pt. Type Provider Facility Loc./Unit Complaint [id number] 06/08/2019 16:40:00 23:59:59 CLS Outpatient DIANA MARIEE MD [facility] FS INFECTION FOLLOWING PRO CEDURE CORRECTION ANTIBIOTIC [id number] 06/01/2019 16:08:00 23:59:59 CLS Outpatient DIANA MARIEE MD [facility] FS INFECTION FOLLOWING PRO CEDURE [id number] 05/11/2019 15:10:00 020 23:59:59 CLS Outpatient DIANA MARIEE MD [facility] FS T81.49XA B95.1 Z79.2 M4 7.816 [id number] 05/04/2019 15:26:00 020 23:59:59 CLS Outpatient DIANA MARIEE MD [facility] FS T81.49XA B95.1 Z79.2 M4 7.816 [id number] 04/27/2019 15:24:00 020 23:59:59 CLS Outpatient DIANA MARIEE MD [facility] FS M79.9 G96.19 G06.2
[2019-08-05] MEDS ORDERED: ROSU20TA32 (08:14)
[2019-08-05] MEDS ORDERED: OMEP20CA18 (08:14)
[2019-08-05] MEDS ORDERED: TOPI50TA13 (08:14)
[2019-08-05] MEDS ORDERED: OXYC5TAB96 (08:14)
[2019-08-05] MEDS ORDERED: LEVO100T (08:14)
[2019-08-05] MEDS ORDERED: CATHETER FLUSH 10 ML SYR IV PRN (08:15)
[2019-08-05] MEDS ORDERED: IOHEXOL 350 MG/ML 100 ML (OMNIPAQUE 350) VIAL IV ONE (08:15)
[2019-08-05] MEDS ORDERED: HOLD METFORMIN - RECEIVED CONTRAST 20 ML VIAL IV SCH (08:15)
[2019-08-05] MEDS ORDERED: NS 100 ML (IVPB) BAG IV ONE (08:15)
[2019-08-05 08:18] LABS: HEMOGLOBIN 13.9 G/DL (11.5-16.0); MEAN CORPUSCULAR HEMOGLOBIN 30 PG (25-34); WHITE BLOOD COUNT 11.1 10^3/uL (4.3-11.0)
[2019-08-05 08:19] LABS: BASOPHILS # (AUTO) 0.1 10^3/uL (0.0-0.1); BASOPHILS % (AUTO) 1 % (0-10); EOSINOPHILS # (AUTO) 0.1 10^3/uL (0.0-0.3); EOSINOPHILS % (AUTO) 1 % (0-10); HEMATOCRIT 43 % (35-52); LYMPHOCYTES # (AUTO) 4.4 X 10^3 (1.0-4.0); LYMPHOCYTES % (AUTO) 40 % (12-44); MEAN CORPUSCULAR HGB CONC 32 G/DL (32-36); MEAN CORPUSCULAR VOLUME 94 FL (80-99); MEAN PLATELET VOLUME 10.7 FL (7.4-10.4); MONOCYTES # (AUTO) 0.9 X 10^3 (0.0-1.0); MONOCYTES % (AUTO) 8 % (0-12); NEUTROPHILS # (AUTO) 5.5 X 10^3 (1.8-7.8); NEUTROPHILS % (AUTO) 50 % (42-75); PLATELET COUNT 286 10^3/uL (130-400); RED CELL DISTRIBUTION WIDTH 13.3 % (10.0-14.5)
[2019-08-05 08:24] LABS: INR 0.9 (0.8-1.4); PROTHROMBIN TIME PATIENT 12.5 SEC (12.2-14.7)
[2019-08-05 08:27] LABS: ALKALINE PHOSPHATASE 118 U/L (40-136); BILIRUBIN,TOTAL 0.3 MG/DL (0.1-1.0); BUN/CREATININE RATIO 21; CALCIUM 9.2 MG/DL (8.5-10.1); CARBON DIOXIDE 21 MMOL/L (21-32); CHLORIDE 107 MMOL/L (98-107); CREATININE SERUM 0.77 MG/DL (0.60-1.30); GFR ESTIMATED > 60; GLUCOSE 159 MG/DL (70-105); POTASSIUM 3.6 MMOL/L (3.6-5.0); SODIUM 144 MMOL/L (135-145)
[2019-08-05 08:28] LABS: ALANINE AMINOTRANSFERASE 80 U/L (0-55); LIPASE 18 U/L (8-78); TOTAL PROTEIN 6.6 GM/DL (6.4-8.2)
[2019-08-05] MEDS ORDERED: PANTOPRAZOLE 40 MG (PROTONIX) VIAL IV ONE (08:30)
[2019-08-05 09:04] LABS: BILIRUBIN,URINE NEGATIVE (NEGATIVE); CLARITY,URINE CLEAR; COLOR,URINE YELLOW; GLUCOSE, URINE (UA) NEGATIVE (NEGATIVE); KETONES,URINE NEGATIVE (NEGATIVE); LEUKOCYTE ESTERASE ,URINE 1+ (NEGATIVE); NITRITE,URINE NEGATIVE (NEGATIVE); PH,URINE 6.5 (5-9); PROTEIN,URINE NEGATIVE (NEGATIVE)
[2019-08-05 09:05] LABS: BACTERIA,URINE TRACE /HPF; SQUAMOUS EPITHELIAL CELL,UR 0-2 /HPF
--- NOTE | 2019-08-05 09:20 | Diagnostic Imaging Report ---
EXAMINATION: CT Abdomen and Pelvis with intravenous contrast. TECHNIQUE: Multiple contiguous axial images were obtained through the abdomen and pelvis after the uneventful administration of intravenous contrast. All CT scans use one or more of the following dose optimizing techniques: automated exposure control, MA and/or KvP adjustment based on a patient size and exam type, or iterative reconstruction. HISTORY: Recent cholecystectomy and liver biopsy with severe abdominal pain COMPARISON: None available. FINDINGS: Limited views of the lower thorax show a nodule in the topmost slice measuring 6 mm (series 2, image one). There is mild atelectasis in the lung bases. There are postsurgical changes of recent cholecystectomy with a small amount of postoperative stranding and fluid in the resection bed. The fluid appears to be free without a rim-enhancing loculated collection. There is a contour abnormality along the surface of the liver anteriorly segment 4A/B which may be the site of biopsy. No active extravasation or hematoma is seen. Peripheral high attenuation along the surface of the liver and extending to the gallbladder fossa is likely hyperemia from recent surgery. There is no biliary ductal dilation. Pancreas is normal. Spleen is normal. Adrenal glands are normal. The kidneys are normal. There is no hydronephrosis. Urinary bladder is normal. Visualized bowel is normal in caliber without obstruction or inflammation. No free fluid or air. No abdominal or pelvic lymphadenopathy. Aorta is normal in caliber without aneurysm. There are no suspicious osseus lesions. IMPRESSION: 1. Postsurgical changes of recent cholecystectomy with a small amount of postoperative stranding of fluid in the resection bed but no loculated drainable fluid collection. 2. Contour abnormality along the anterior surface of the liver likely due to reported history of biopsy. No active extravasation or hematoma seen. 3. Likely nodule in the top most slice of the lungs on the right measuring 6 mm, follow-up chest CT is recommended to determine if this is truly a nodule. Dictated by: Dictated on workstation # [id number]
[2019-08-05] MEDS ORDERED: fentaNYL INJECTION 100 MCG/2 ML AMP IVP ONE (09:30)
[2019-08-05] MEDS ORDERED: LIDOCAINE 2% VISCOUS 15 ML UDC PO ONE (09:30)
[2019-08-05] MEDS ORDERED: ANTACID SUSP 30 ML UDC (MYLANTA) PO ONE (09:30)
--- NOTE | 2019-08-05 09:38 | NUR ---
Pt has continued to moan and grimace and thrash on cart and reports no relief of pain. Pain medication given see eMAR. Dr has re-assessed patient numerous times.
[2019-08-05] MEDS ORDERED: METHYLNALTREXONE 12 MG/0.6 ML (RELISTOR) VIAL SQ ONE (09:45)
[2019-08-05] MEDS ORDERED: DICYCLOMINE 10 MG/ML (BENTYL) 2 ML AMP IM ONE (09:45)
[2019-08-05] MEDS ORDERED: KETOROLAC 30 MG/ML VIAL IVP ONE (09:45)
--- NOTE | 2019-08-05 10:01 | NUR ---
Pt c/o pain but does not appear to not be thrashing as frequently.
[2019-08-05] MEDS ORDERED: morphine INJ 10 MG/ML 1ML (SYR OR VIAL) IVP STA ×2 (10:27→12:52)
[2019-08-05] MEDS ORDERED: HALOPERIDOL 5 MG/ML (HALDOL) AMP IV ONE (10:45)
[2019-08-05] MEDS ORDERED: diphenhydrAMINE 50 MG/ML INJ (BENADRYL) IVP ONE (10:45)
--- NOTE | 2019-08-05 10:45 | NUR ---
spoke with [facility] about the patient's case and plan to accept for admit.
--- NOTE | 2019-08-05 11:03 | NUR ---
Pt continues to report non-relief of spasms and cramps and has been up to bathroom three times. One trip into bathroom the patient had 2 small formed bowel movements with "great effort" she described.
--- NOTE | 2019-08-05 11:30 | NUR ---
updated of planned admit to [facility] awaiting bed number
--- NOTE | 2019-08-05 12:20 | NUR ---
Updated patient of acceptance to [facility] RM 332, no visitors allowed.
--- NOTE | 2019-08-05 12:20 | NUR ---
Paged [facility] for transfer.
[2019-08-05] MEDS ORDERED: morphine INJ 10 MG/ML 1ML (SYR OR VIAL) ONE (12:46)
[2019-08-05 13:00] VITALS: BP 135/55
--- NOTE | 2019-08-05 13:00 | NUR ---
Pt departed at this time via [facility] for [facility], report to EMS. Pt report just prior to transport that pain continues to increase and rates "10"/10. See eMAR for medication administration. Pt has reported "cramps/spasms" as descriptions.
== END 2019-08-05 13:00 | disposition short-term general hospital (02) ==
LOC: EDUNIT# 07:46 → ER FS 07:48
DX: R10.13 Epigastric pain (principal); R11.0 Nausea; D72.829 Elevated white blood cell count, unspecified; Z88.2 Allergy status to sulfonamides; Z90.49 Acquired absence of other specified parts of digestive tract
CPT/HCPCS: 36415; 74177; 80053; 81000; 83690; 84484; 85025; 85610; 85730; 87077; 87088

== ENCOUNTER → 2019-10-12 | Outpatient (CLI) | payer MEDICARE ==
--- NOTE | 2019-10-08 10:19 | NUR ---
CALLED [employer] AND SPOKE WITH ASYA ABOUT CHANGING ORDER TO WO CONTRAST OR W/ AND W/O. SHE WILL FAX CORRECTED ORDER EITHER TO [facility] OR SCHEDULING. HR 10/08/2019 @ 7185
--- NOTE | 2019-10-08 10:57 | NUR ---
CALLED SCHEDULING AND TOLD THEM TO WATCH FOR A CORRECTED ORDER FOR THIS PATIENT. HR 10/08/2019 @3080
[~2019-10-12] MED LIST: CATHETER FLUSH 10 ML SYR IV PRN; HOLD METFORMIN - RECEIVED CONTRAST 20 ML VIAL IV SCH; IOHEXOL 350 MG/ML 100 ML (OMNIPAQUE 350) VIAL IV ONE; LEVO100T; NS 100 ML (IVPB) BAG IV ONE; OMEP20CA18; OXYC5TAB96; ROSU20TA32; TOPI50TA13
--- NOTE | 2019-10-12 17:23 | Diagnostic Imaging Report ---
EXAMINATION: Multiple contiguous axial CT images of the head were obtained prior to and after intravenous administration of contrast. TECHNIQUE: Multiple contiguous axial images were obtained through the brain before and after the administration of intravenous contrast. Auto Exposure Controls were utilized during the CT exam to meet ALARA standards for radiation dose reduction. INDICATION: Memory loss FINDINGS: Ventricles and sulci are within normal limits. There is no intracranial hemorrhage or abnormal mass effect. No abnormal focus of contrast enhancement is identified. IMPRESSION: Unremarkable CT of the head without and with intravenous contrast. Dictated by: Dictated on workstation # [id number]
== END ==
LOC: RAD FS 14:44
PROVIDERS: ATTEND Nurse Practitioner
DX: R41.3 Other amnesia (principal); R41.0 Disorientation, unspecified
CPT/HCPCS: 70470

== ENCOUNTER → 2020-01-19 | Outpatient (CLI) | payer MEDICARE ==
[~2020-01-19] MED LIST changes: -CATHETER FLUSH 10 ML SYR IV PRN; -HOLD METFORMIN - RECEIVED CONTRAST 20 ML VIAL IV SCH; -IOHEXOL 350 MG/ML 100 ML (OMNIPAQUE 350) VIAL IV ONE; -NS 100 ML (IVPB) BAG IV ONE; +OXC5T; -OXYC5TAB96
--- NOTE | 2020-01-19 17:43 | Diagnostic Imaging Report ---
INDICATION: 69-year-old female, postmenopausal. Screening for osteoporosis. COMPARISON: None. FINDINGS: AP Spine L1-L4: [BMD (g/cm2): .910] [T-Score: -2.4] [Z-Score: -0.9] [BMD Previous: na] [BMD % Change: na] LT Hip Neck: [BMD (g/cm2): 0.800] [T-Score: -1.7] [Z-Score: -0.2] LT Hip Total: [BMD (g/cm2):0.905] [T-Score:-0.8] [Z-Score: 0.5] [BMD Previous: na] [BMD % Change: na] RT Hip Neck: [BMD (g/cm2):0.788] [T-Score:-1.8] [Z-Score:-0.2] RT Hip Total: [BMD (g/cm2):0.870] [T-score:-1.1] [Z-Score:.2] [BMD Previous:na] [BMD % Change:na] *Indicates significant change from prior examination based on 95% confidence level. World Health Organization criteria for BMD interpretation classify patients as Normal (T-score at or above -1.0), Osteopenic (T-score between -1.0 and -2.5) or Osteoporotic (T-score at or below -2.5). LIMITATIONS AND MODIFICATION: None. FRACTURE RISK (FRAX SCORE): The ten year probability of (%): Major Osteoporotic Fracture: [10.6] Hip Fracture: [1.8] IMPRESSION: 1. Osteopenia (Low bone mass). 2. Baseline examination. 3. See below National Osteoporosis Foundation guidelines on when to potentially initiate pharmacologic therapy. Based on the National Osteoporosis Foundation Guidelines, pharmacologic treatment should be initiated in any of the following, unless clinical conditions suggest otherwise: * Any patient with prior fragility fracture of the hip or vertebrae. A spine fracture indicates 5X risk for subsequent spine fracture and 2X risk for subsequent hip fracture. * Osteoporosis (T-score <-2.5). * Postmenopausal women and men age 50 and older with low bone mass/osteopenia (T-score between -1.0 and -2.5) by DXA and 10-year major osteoporotic fracture greater than 20% or a 10-year probability of hip fracture greater than 3%. These fracture risks are supplied above in the FRAX score, if applicable. * Clinician judgement and/or patient preferences may indicate treatment for people with 10-year fracture probabilities above or below these levels. Dictated by: Dictated on workstation # [id number]
== END ==
LOC: RAD 14:15
PROVIDERS: ATTEND Nurse Practitioner
DX: Z13.820 Encounter for screening for osteoporosis (principal); M85.852 Other specified disorders of bone density and structure, left thigh; M85.851 Other specified disorders of bone density and structure, right thigh; Z78.0 Asymptomatic menopausal state
CPT/HCPCS: 77080